=== PATIENT | female | born 1985 | race Caucasian/White ===

== ENCOUNTER 2017-03-15 08:26 | Emergency (ER) | payer SELFPAY ==
[~2017-03-15] VITALS: Ht 167.6 cm; Wt 125.0 kg
[~2017-03-15 08:26] MED LIST: AMOXICILLIN 8751 TAB PO; BACTRIM DS 8001 TAB PO; ED ZOFRAN4 TAB/BOTT PO; FLEXERIL 1010 MG/TAB PO; NORCO 325 MG-51 TA1 PO; ORTHO TRI-CYCLE1 TA2 PO; PRENATAL CAPLE1 EACH PO; SEPTRA DS 8001 TAB PO; TYLENOL SINUS 31 TAB PO
[2017-03-15] MEDS ORDERED: XANAX0.5 M1 PO (08:35)
[2017-03-15] MEDS ORDERED: CYMBALTA60 M1 PO (08:35)
[2017-03-15] MEDS ORDERED: NORCO 325 MG-51 TA1 PO (09:47)
[2017-03-15] MEDS ORDERED: BACTRIM DS TAB1 EACH PO (09:47)
[2017-03-15 09:55] VITALS: BP 161/103
== END 2017-03-15 09:56 | disposition home or self-care (01) ==
LOC: ED 08:26
DX: L03.011 Cellulitis of right finger (principal)

== ENCOUNTER 2017-05-09 08:03 | Emergency (ER) | payer SELFPAY ==
[~2017-05-09] VITALS: Ht 167.6 cm; Wt 127.3 kg
[~2017-05-09 08:03] MED LIST changes: +AMOXIL500 M1 PO; +BACTRIM DS TAB1 EACH PO; +CYMBALTA60 M1 PO; +DIFLUCAN200 M1 PO; +XANAX0.5 M1 PO
[2017-05-09 08:09] VITALS: BP 180/86
[2017-05-09] MEDS ORDERED: CLEOCIN HCL150 M1 PO (09:10)
== END 2017-05-09 09:04 | disposition home or self-care (01) ==
LOC: ED 08:03
DX: K04.7 Periapical abscess without sinus (principal); K08.89 Other specified disorders of teeth and supporting structures; R68.84 Jaw pain; F17.210 Nicotine dependence, cigarettes, uncomplicated; F41.9 Anxiety disorder, unspecified; G25.81 Restless legs syndrome
CPT/HCPCS: J1885

== ENCOUNTER 2017-06-30 15:44 | Emergency (ER) | payer SELFPAY ==
[~2017-06-30 15:44] MED LIST changes: +CLEOCIN HCL150 M1 PO
[2017-06-30] MEDS ORDERED: BACTRIM DS TAB1 EACH PO (16:29)
[2017-06-30] MEDS ORDERED: NORCO 325 MG-51 TA1 PO (16:29)
[2017-06-30 16:44] VITALS: BP 141/73
== END 2017-06-30 16:44 | disposition home or self-care (01) ==
LOC: ED 15:44
DX: L03.311 Cellulitis of abdominal wall (principal); E66.01 Morbid (severe) obesity due to excess calories; F41.9 Anxiety disorder, unspecified; G25.81 Restless legs syndrome

== ENCOUNTER 2017-07-01 12:33 | Emergency (ER) | payer SELFPAY ==
[~2017-07-01] VITALS: Ht 167.6 cm; Wt 127.3 kg
[2017-07-01 14:20] VITALS: BP 138/82
== END 2017-07-01 14:20 | disposition home or self-care (01) ==
LOC: ED 12:33
DX: S61.213A Laceration without foreign body of left middle finger without damage to nail, initial encounter (principal); W26.8XXA Contact with other sharp object(s), not elsewhere classified, initial encounter; Y92.000 Kitchen of unspecified non-institutional (private) residence as the place of occurrence of the external cause; Z23 Encounter for immunization; F41.9 Anxiety disorder, unspecified
CPT/HCPCS: 90715

== ENCOUNTER 2017-08-11 11:30 | Emergency (ER) | payer SELFPAY ==
[~2017-08-11] VITALS: Ht 167.6 cm; Wt 127.3 kg
[2017-08-11] MEDS ORDERED: CEPHALEXIN500 M2 PO (12:21)
[2017-08-11] MEDS ORDERED: NORCO 325 MG-51 TA1 PO (12:21)
[2017-08-11 12:34] VITALS: BP 123/78
== END 2017-08-11 12:35 | disposition home or self-care (01) ==
LOC: ED 11:30
DX: O86.0 Infection of obstetric surgical wound (principal); L03.311 Cellulitis of abdominal wall; O90.0 Disruption of cesarean delivery wound; E66.01 Morbid (severe) obesity due to excess calories; Z68.42 Body mass index [BMI] 45.0-49.9, adult; Z91.012 Allergy to eggs; Z91.040 Latex allergy status

== ENCOUNTER 2017-12-11 15:50 | Emergency (ER) | payer SELFPAY ==
[~2017-12-11] VITALS: Ht 170.2 cm; Wt 125.0 kg
[~2017-12-11 15:50] MED LIST changes: +CEPHALEXIN500 M2 PO
[2017-12-11] MEDS ORDERED: LISINOPRIL20 MG PO (16:16)
[2017-12-11 17:04] LABS: EOS # 0.3 (0.04-0.40); EOS % 3.3 % (1.0-5.0); LYMPH# 2.1 (1.50-4.00); MEAN CELL VOLUME 82 fl (78-100); MEAN CORPUSCULAR HEMOGLOBIN 26 pg (27-31); MEAN CORPUSCULAR HGB CONC 32 g/dL (33-37); MONO # 0.8 (0.20-0.80); NEU # 6.7 (1.40-6.50); PLATELET COUNT 336 K/mm3 (130-400); RED BLOOD COUNT 5.01 M/mm3 (4.10-5.30); RED CELL DISTRIBUTION WIDTH 15.2 % (11.5-14.5); WHITE BLOOD COUNT 9.9 K/mm3 (4.8-10.8)
[2017-12-11 17:15] LABS: BUN/CREATININE RATIO 17.7 (6.0-26.0); CALCIUM 8.7 mg/dL (8.4-10.2); POTASSIUM 4.1 mmol/L (3.6-5.0)
[2017-12-11] MEDS ORDERED: TRAMADOL 50 MG TAB PO (17:37)
[2017-12-11 17:44] VITALS: BP 138/88
== END 2017-12-11 17:45 | disposition home or self-care (01) ==
LOC: ED 15:50
PROVIDERS: Family Medicine
DX: G56.23 Lesion of ulnar nerve, bilateral upper limbs (principal); M54.31 Sciatica, right side; F41.9 Anxiety disorder, unspecified

== ENCOUNTER 2018-01-23 18:55 | Emergency (ER) | payer SELFPAY ==
[~2018-01-23] VITALS: Ht 167.6 cm; Wt 127.3 kg
[~2018-01-23 18:55] MED LIST changes: +LISINOPRIL20 MG PO; +TRAMADOL 50 MG TAB PO
[2018-01-23] MEDS ORDERED: PRINIVIL10 M1 PO (19:05)
[2018-01-23] MEDS ORDERED: NORCO 325 MG-51 TA1 PO (19:17)
[2018-01-23] MEDS ORDERED: AMOXICILLIN875 MG PO (19:17)
[2018-01-23 19:30] VITALS: BP 173/73
== END 2018-01-23 19:30 | disposition home or self-care (01) ==
LOC: ED 18:55
DX: K08.89 Other specified disorders of teeth and supporting structures (principal); H60.502 Unspecified acute noninfective otitis externa, left ear; Z79.899 Other long term (current) drug therapy

== ENCOUNTER 2018-04-24 18:40 | Emergency (ER) | payer SELFPAY ==
[~2018-04-24] VITALS: Ht 170.2 cm; Wt 129.5 kg
[~2018-04-24 18:40] MED LIST changes: +AMOXICILLIN875 MG PO; +PRINIVIL10 M1 PO
[2018-04-24] MEDS ORDERED: AMOXIL500 M1 PO (19:01)
[2018-04-24 19:20] VITALS: BP 117/63
== END 2018-04-24 19:08 | disposition home or self-care (01) ==
LOC: ED 18:40
DX: J32.9 Chronic sinusitis, unspecified (principal); K08.89 Other specified disorders of teeth and supporting structures; I10 Essential (primary) hypertension; Z79.899 Other long term (current) drug therapy; Z79.3 Long term (current) use of hormonal contraceptives

== ENCOUNTER 2018-11-17 17:53 | Emergency (ER) | payer SELFPAY ==
[2018-11-17 18:01] VITALS: BP 148/81
[2018-11-17] MEDS ORDERED: KETOROLAC10 MG PO (19:43)
== END 2018-11-17 19:41 | disposition home or self-care (01) ==
LOC: ED 17:53
DX: M26.621 Arthralgia of right temporomandibular joint (principal); E66.01 Morbid (severe) obesity due to excess calories; G25.81 Restless legs syndrome
CPT/HCPCS: J1885

== ENCOUNTER 2019-02-22 17:19 | Emergency (ER) | payer SELFPAY ==
[~2019-02-22 17:19] MED LIST changes: +KETOROLAC10 MG PO
[2019-02-22 17:45] LABS: URINE APPEARANCE CLOUDY; URINE BILIRUBIN NEGATIVE (NEGATIVE); URINE BLOOD 50 ery/uL (NEGATIVE); URINE COLOR YELLOW; URINE GLUCOSE NEGATIVE (NEGATIVE); URINE KETONE NEGATIVE (NEGATIVE); URINE LEUKOCYTE ESTERASE NEGATIVE (NEGATIVE); URINE NITRATE NEGATIVE (NEGATIVE); URINE PROTEIN(semi-quant) TRACE mg/dL (NEGATIVE); URINE UROBILINOGEN NORMAL (NORMAL)
[2019-02-22 18:11] LABS: EOS # 0.2 (0.04-0.40); EOS % 2.5 % (1.0-5.0); HEMATOCRIT 43.4 % (37.0-47.0); HEMOGLOBIN 13.8 g/dL (12.5-16.0); LYMPH# 2.4 (1.50-4.00); MEAN CELL VOLUME 85 fl (78-100); MEAN CORPUSCULAR HEMOGLOBIN 27 pg (27-31); MEAN CORPUSCULAR HGB CONC 32 g/dL (33-37); MEAN PLATELET VOLUME 9.2 fl (7.4-10.4); MONO # 0.5 (0.20-0.80); NEU # 5.5 (1.40-6.50); PLATELET COUNT 395 K/mm3 (130-400); RED BLOOD COUNT 5.11 M/mm3 (4.10-5.30); RED CELL DISTRIBUTION WIDTH 14.5 % (11.5-14.5); WHITE BLOOD COUNT 8.6 K/mm3 (4.8-10.8)
[2019-02-22 18:17] LABS: ALBUMIN 4.1 g/dL (3.5-5.0)
[2019-02-22 18:18] LABS: POTASSIUM 4.3 mmol/L (3.5-5.1)
[2019-02-22 18:19] LABS: CALCIUM 9.4 mg/dL (8.3-10.5)
[2019-02-22 18:20] LABS: TOTAL PROTEIN 7.6 g/dL (6.4-8.3)
[2019-02-22 18:22] LABS: TOTAL BILIRUBIN 0.2 mg/dL (0.2-1.2)
[2019-02-22 20:16] LABS: URINE APPEARANCE HAZY; URINE BILIRUBIN NEGATIVE (NEGATIVE); URINE BLOOD TRACE (NEGATIVE); URINE COLOR YELLOW; URINE GLUCOSE NEGATIVE (NEGATIVE); URINE KETONE NEGATIVE (NEGATIVE); URINE LEUKOCYTE ESTERASE NEGATIVE (NEGATIVE); URINE NITRATE NEGATIVE (NEGATIVE); URINE PROTEIN(semi-quant) TRACE mg/dL (NEGATIVE); URINE UROBILINOGEN NORMAL (NORMAL)
[2019-02-22 20:17] LABS: URINE MUCUS PRESENT (NOT PRESENT)
[2019-02-22 20:54] VITALS: BP 152/89
== END 2019-02-22 20:54 | disposition home or self-care (01) ==
LOC: ED 17:19
PROVIDERS: Nurse Practitioner Family
DX: N20.0 Calculus of kidney (principal); K76.0 Fatty (change of) liver, not elsewhere classified; E66.01 Morbid (severe) obesity due to excess calories; I10 Essential (primary) hypertension; F41.9 Anxiety disorder, unspecified; F32.9 Major depressive disorder, single episode, unspecified; F17.210 Nicotine dependence, cigarettes, uncomplicated; Z98.51 Tubal ligation status
CPT/HCPCS: J1885; J2270; J2405; J7030; Q9967

== ENCOUNTER 2019-05-23 02:30 | Emergency (ER) | payer SELFPAY ==
[~2019-05-23] VITALS: Ht 167.6 cm; Wt 148.3 kg
[2019-05-23] MEDS ORDERED: ACETAMINOPHEN-H1 TA2 PO (02:49)
[2019-05-23] MEDS ORDERED: ALPRAZOLAM0.5 MG PO (02:49)
[2019-05-23 03:17] LABS: EOS # 0.3 (0.04-0.40); EOS % 2.8 % (1.0-5.0); HEMATOCRIT 41.1 % (37.0-47.0); HEMOGLOBIN 13.3 g/dL (12.5-16.0); LYMPH# 2.8 (1.50-4.00); MEAN CELL VOLUME 84 fl (78-100); MEAN CORPUSCULAR HEMOGLOBIN 27 pg (27-31); MEAN CORPUSCULAR HGB CONC 32 g/dL (33-37); MONO # 0.8 (0.20-0.80); NEU # 6.1 (1.40-6.50); PLATELET COUNT 362 K/mm3 (130-400); RED BLOOD COUNT 4.91 M/mm3 (4.10-5.30); RED CELL DISTRIBUTION WIDTH 14.4 % (11.5-14.5)
[2019-05-23 03:28] LABS: ALBUMIN 3.8 g/dL (3.5-5.0)
[2019-05-23 03:29] LABS: POTASSIUM 3.9 mmol/L (3.5-5.1)
[2019-05-23 03:30] LABS: CALCIUM 9.1 mg/dL (8.3-10.5)
[2019-05-23 03:31] LABS: TOTAL PROTEIN 7.3 g/dL (6.4-8.3)
[2019-05-23 03:33] LABS: TOTAL BILIRUBIN 0.2 mg/dL (0.2-1.2)
[2019-05-23 03:54] LABS: URINE APPEARANCE HAZY; URINE BILIRUBIN NEGATIVE (NEGATIVE); URINE BLOOD TRACE (NEGATIVE); URINE COLOR YELLOW; URINE GLUCOSE NEGATIVE (NEGATIVE); URINE KETONE NEGATIVE (NEGATIVE); URINE LEUKOCYTE ESTERASE NEGATIVE (NEGATIVE); URINE NITRATE NEGATIVE (NEGATIVE); URINE PROTEIN(semi-quant) TRACE mg/dL (NEGATIVE); URINE UROBILINOGEN NORMAL (NORMAL); URINE WBC 0-1 /hpf (0-3)
[2019-05-23 05:42] VITALS: BP 113/67
[2019-05-23] MEDS ORDERED: PERCOCET 325 MG1 TA2 PO (05:44)
[2019-05-23] MEDS ORDERED: ONDANSETRON ODT8 MG PO (05:44)
== END 2019-05-23 06:00 | disposition home or self-care (01) ==
LOC: ED 02:30
PROVIDERS: Nurse Practitioner Family
DX: N20.0 Calculus of kidney (principal); F32.9 Major depressive disorder, single episode, unspecified; F17.210 Nicotine dependence, cigarettes, uncomplicated; Z87.442 Personal history of urinary calculi; Z98.890 Other specified postprocedural states; Z90.721 Acquired absence of ovaries, unilateral; Z98.51 Tubal ligation status
CPT/HCPCS: J1885; J2270; J2405; J7030; Q9967

== ENCOUNTER 2019-07-02 21:00 | Emergency (ER) | payer SELFPAY ==
[~2019-07-02] VITALS: Ht 167.6 cm; Wt 136.4 kg
[~2019-07-02 21:00] MED LIST changes: +ACETAMINOPHEN-H1 TA2 PO; +ALPRAZOLAM0.5 MG PO; +ONDANSETRON ODT8 MG PO; +PERCOCET 325 MG1 TA2 PO
[2019-07-02] MEDS ORDERED: DULOXETINE60 MG PO (21:14)
[2019-07-02 22:44] VITALS: BP 155/89
== END 2019-07-02 22:51 | disposition home or self-care (01) ==
LOC: ED 21:00
DX: H92.01 Otalgia, right ear (principal); Z87.891 Personal history of nicotine dependence
CPT/HCPCS: J1885

== ENCOUNTER 2021-06-16 16:23 | Emergency (ER) | payer BC ==
[~2021-06-16] VITALS: Ht 170.2 cm; Wt 147.7 kg
[~2021-06-16 16:23] MED LIST changes: +DULOXETINE60 MG PO
[2021-06-16 16:58] VITALS: BP 118/82
[2021-06-16] MEDS ORDERED: ELIMITE60 G1 TP (17:21)
== END 2021-06-16 18:08 | disposition home or self-care (01) ==
LOC: ED 16:23
DX: L02.511 Cutaneous abscess of right hand (principal); H60.92 Unspecified otitis externa, left ear; F41.9 Anxiety disorder, unspecified; M54.9 Dorsalgia, unspecified

== ENCOUNTER 2023-05-23 20:02 | Emergency (ER) | payer OTHER ==
[~2023-05-23] VITALS: Wt 147.1 kg
[~2023-05-23 20:02] MED LIST changes: +CEPHALEXIN500 M1 PO; +DEXTROAMPH SACC30 MG PO; +ELIMITE60 G1 TP; +FLOMAX0.4 MG PO; +LAMOTRIGINE25 M1 PO; +LYMEPAK100 MG PO; +ZOFRAN ODT4 MG PO
[2023-05-23 21:20] VITALS: BP 129/89
== END 2023-05-23 21:20 | disposition home or self-care (01) ==
LOC: ED 20:02
DX: M54.50 Low back pain, unspecified (principal); R00.0 Tachycardia, unspecified; Z91.040 Latex allergy status
CPT/HCPCS: J1885

== ENCOUNTER → 2023-05-26 | Outpatient (CLI) | payer OTHER ==
[2023-05-26 09:23] LABS: BASO # 0.01 K/mm3 (0.02-0.10); EOS # 0.34 K/mm3 (0.04-0.40); EOS % 3.9 % (1.0-5.0); HEMATOCRIT 39.8 % (37.0-47.0); HEMOGLOBIN 12.1 g/dL (12.5-16.0); LYMPH# 1.85 K/mm3 (1.50-4.00); MEAN CELL VOLUME 80 fl (78-100); MEAN CORPUSCULAR HEMOGLOBIN 24 pg (27-31); MEAN CORPUSCULAR HGB CONC 30 g/dL (33-37); MEAN PLATELET VOLUME 8.9 fl (7.4-10.4); MONO # 0.62 K/mm3 (0.20-0.80); NEU # 5.92 K/mm3 (1.40-6.50); PLATELET COUNT 373 K/mm3 (130-400); RED BLOOD COUNT 4.97 M/mm3 (4.10-5.30); RED CELL DISTRIBUTION WIDTH 15.3 % (11.5-14.5); WHITE BLOOD COUNT 8.8 K/mm3 (4.8-10.8)
[2023-05-26 09:32] LABS: ALBUMIN 3.5 g/dL (3.5-5.0)
[2023-05-26 09:34] LABS: CALCIUM 8.9 mg/dL (8.3-10.5)
[2023-05-26 09:35] LABS: TOTAL PROTEIN 6.8 g/dL (6.4-8.3)
[2023-05-26 09:37] LABS: TOTAL BILIRUBIN 0.2 mg/dL (0.2-1.2)
[2023-05-26 09:41] LABS: MAGNESIUM 1.89 mg/dL (1.60-2.60)
== END ==
LOC: LAB 09:01
PROVIDERS: Internal Medicine
DX: M54.16 Radiculopathy, lumbar region (principal); F33.0 Major depressive disorder, recurrent, mild; G25.81 Restless legs syndrome; F90.0 Attention-deficit hyperactivity disorder, predominantly inattentive type; N20.0 Calculus of kidney; E78.2 Mixed hyperlipidemia; I10 Essential (primary) hypertension; G47.411 Narcolepsy with cataplexy; F90.9 Attention-deficit hyperactivity disorder, unspecified type; E61.1 Iron deficiency; E55.9 Vitamin D deficiency, unspecified; U09.9 Post COVID-19 condition, unspecified; M62.830 Muscle spasm of back

== ENCOUNTER → 2023-08-31 | Outpatient (CLI) | payer SELFPAY ==
[2023-08-31 09:44] LABS: BASO # 0.02 K/mm3 (0.02-0.10); EOS # 0.27 K/mm3 (0.04-0.40); EOS % 2.4 % (1.0-5.0); HEMATOCRIT 43.9 % (37.0-47.0); HEMOGLOBIN 13.5 g/dL (12.5-16.0); LYMPH# 2.87 K/mm3 (1.50-4.00); MEAN CELL VOLUME 80 fl (78-100); MEAN CORPUSCULAR HEMOGLOBIN 25 pg (27-31); MEAN CORPUSCULAR HGB CONC 31 g/dL (33-37); MEAN PLATELET VOLUME 8.5 fl (7.4-10.4); MONO # 0.61 K/mm3 (0.20-0.80); NEU # 7.26 K/mm3 (1.40-6.50); PLATELET COUNT 454 K/mm3 (130-400); RED BLOOD COUNT 5.47 M/mm3 (4.10-5.30); RED CELL DISTRIBUTION WIDTH 15.3 % (11.5-14.5); WHITE BLOOD COUNT 11.1 K/mm3 (4.8-10.8)
[2023-08-31 09:51] LABS: ALBUMIN 4.2 g/dL (3.5-5.0)
[2023-08-31 09:53] LABS: CALCIUM 9.4 mg/dL (8.3-10.5)
[2023-08-31 09:54] LABS: TOTAL PROTEIN 7.8 g/dL (6.4-8.3)
[2023-08-31 09:56] LABS: TOTAL BILIRUBIN 0.28 mg/dL (0.2-1.2)
== END ==
LOC: LAB 09:35
PROVIDERS: Nurse Practitioner Family
DX: R22.0 Localized swelling, mass and lump, head (principal)

== ENCOUNTER 2024-03-04 05:00 | Emergency (ER) | payer BC ==
[~2024-03-04] VITALS: Ht 170.2 cm; Wt 145.1 kg
[~2024-03-04 05:00] MED LIST changes: +METRONIDAZOLE500 M1 PO; +MORGIDOX 1X100100 MG PO; +PREDNISONE20 M1 PO
[2024-03-04] MEDS ORDERED: CHLORHEXIDINE118 ML (05:07)
[2024-03-04] MEDS ORDERED: CORTISPORIN OTI10 M2 OT (05:07)
[2024-03-04] MEDS ORDERED: AMOXICILLIN AND1 TA2 PO (05:07)
[2024-03-04] MEDS ORDERED: Ketorolac 30 MG/ML VIAL IV ONE (05:45)
[2024-03-04 05:59] LABS: BASO # 0.03 K/mm3 (0.02-0.10); EOS # 0.47 K/mm3 (0.04-0.40); EOS % 4.6 % (1.0-5.0); HEMATOCRIT 41.5 % (37.0-47.0); HEMOGLOBIN 12.6 g/dL (12.5-16.0); LYMPH# 2.01 K/mm3 (1.50-4.00); MEAN CELL VOLUME 81 fl (78-100); MEAN CORPUSCULAR HEMOGLOBIN 25 pg (27-31); MEAN CORPUSCULAR HGB CONC 30 g/dL (33-37); MEAN PLATELET VOLUME 8.7 fl (7.4-10.4); MONO # 0.62 K/mm3 (0.20-0.80); NEU # 7.09 K/mm3 (1.40-6.50); PLATELET COUNT 377 K/mm3 (130-400); RED CELL DISTRIBUTION WIDTH 15.2 % (11.5-14.5); WHITE BLOOD COUNT 10.2 K/mm3 (4.8-10.8)
[2024-03-04 08:58] VITALS: BP 174/104
== END 2024-03-04 09:07 | disposition home or self-care (01) ==
LOC: ED 05:00
PROVIDERS: Family Medicine
DX: L03.211 Cellulitis of face (principal); Z91.040 Latex allergy status
CPT/HCPCS: J1885